=== PATIENT | female | born 1945 | race Caucasian/White ===

== ENCOUNTER → 2017-06-19 | Outpatient (CLI) | payer MEDICARE ==
[~2017-06-19] MED LIST: AGGRENOX ER 251 CER PO; CELEXA; CELEXA 20MG20 MG/TAB PO; HCTZ; HCTZ 25MG TAB25 MG PO; IMODIUM 2MG CAPS2 MG PO; LEVOTHYROXINE PO; LEVOXYL0.075 MG PO; LOPRESSOR; LOPRESSOR 550 MG/TAB PO; LOTENSIN40 MG PO; LOTREL 10 MG-201 CAP PO; NORVASC 10MG10 MG PO; PLAVIX 75MG TAB75 MG PO; PRILOSEC; PRILOTC PO; PROTONIX 40MG T40 MG; ZOCOR; ZOCOR 10MG10 MG PO
== END ==
LOC: COL.VAS 06-16 08:00
DX: I10 Essential (primary) hypertension (principal); R01.1 Cardiac murmur, unspecified

== ENCOUNTER → 2017-06-24 | Outpatient (CLI) | payer MEDICARE | LOC: MC.RAD 14:40 | DX: Z12.31 Encounter for screening mammogram for malignant neoplasm of breast (principal); I10 Essential (primary) hypertension; R01.1 Cardiac murmur, unspecified ==

== ENCOUNTER → 2018-08-02 | Outpatient (CLI) | payer MEDICARE | LOC: MC.RAD 09:45 | DX: Z12.31 Encounter for screening mammogram for malignant neoplasm of breast (principal) ==

== ENCOUNTER → 2020-02-27 | Outpatient (CLI) | payer MEDICARE, OTHER | LOC: MC.RAD 14:38 | DX: Z12.31 Encounter for screening mammogram for malignant neoplasm of breast (principal); N63.20 Unspecified lump in the left breast, unspecified quadrant ==

== ENCOUNTER → 2020-03-02 | Outpatient (CLI) | payer MEDICARE, OTHER | LOC: MC.RAD 11:14 | DX: N60.02 Solitary cyst of left breast (principal) ==

== ENCOUNTER 2020-05-12 18:29 | Observation (INO) | payer MEDICARE, OTHER ==
[~2020-05-12] VITALS: Ht 149.9 cm; Wt 94.5 kg
[~2020-05-12 18:29] MED LIST changes: -PROTONIX 40MG T40 MG; +PROTONIX 40MG T40 MG PO
[2020-05-12 19:16] LABS: BASO % 0.4 % (0.0-2.0); EOS # 0.2 (0.0-0.7); EOS % 2.9 % (0-4.0); GRAN # 4.9 (1.4-6.5); GRAN % 66.5 % (42.2-75.2); HEMATOCRIT 39.7 % (37.0-47.0); HEMOGLOBIN 13.2 g/dl (12.5-16.0); LYMPH # 1.6 (1.2-3.4); LYMPH % 21.2 % (20.0-51.0); MEAN CELL VOLUME 87 fl (80.0-100.0); MEAN CORPUSCULAR HEMOGLOBIN 29 pg (27.0-31.0); MEAN CORPUSCULAR HGB CONC 33 g/dl (33.0-37.0); MEAN PLATELET VOLUME 9.7 fl (7.4-10.4); MONO # 0.6 (0.1-0.6); MONO % 8.6 % (1.7-9.3); PLATELET COUNT 227 K/mm3 (130-400); RED BLOOD COUNT 4.55 M/mm3 (4.10-5.30)
[2020-05-12 19:21] LABS: ALANINE AMINOTRANSFERASE 25 U/L (4-34); ALBUMIN 4.5 gm/dL (3.5-5.0); ALKALINE PHOSPHATASE 64 U/L (50-136); ANION GAP 10 mmol/L (7-16); AST,SGOT 29 U/L (15-37); BILIRUBIN,TOTAL 0.4 mg/dL (0.0-1.0); BLOOD UREA NITROGEN 26 mg/dL (7-17); CALCIUM 9.2 mg/dL (8.4-10.2); CARBON DIOXIDE 26 mmol/L (22-30); CHLORIDE 98 mmol/L (98-107); CREATINE KINASE 64 U/L (30-135); CREATININE, serum 1.09 (0.52-1.25); GLUCOSE 129 mg/dL (74-106); LIPASE 87 U/L (23-300); POTASSIUM 4.3 mmol/L (3.4-5.0); SODIUM 133 mmol/L (137-145); TOTAL PROTEIN 7.3 gm/dL (6.4-8.2)
[2020-05-12 19:22] LABS: PROTHROMBIN TIME 10.8 SECONDS (9.7-12.8)
[2020-05-12] MEDS ORDERED: ALDACTONE 25MG25 M1 PO (19:26)
[2020-05-12] MEDS ORDERED: ZOLOFT 100MG100 MG PO (19:26)
[2020-05-12 19:34] LABS: TROPONIN-I < 0.012 ng/mL (0.000-0.035)
--- NOTE | 2020-05-12 22:50 | NUR ---
PT BROUGHT TO FLOOR PER W/C. ALERT AND ORIENTATED. STEADY GAIT. DENIES PAIN, SOA. VS MONITORED. ASSESSMENT COMPLETE. INT INTACT IN LEFT AC. CALL LIGHT WITHIN REACH.
[2020-05-12 23:05] VITALS: BP 159/67; PULSE 68; TEMP 98.4
[2020-05-12] MEDS ORDERED: ZOCOR 20MG20 MG PO (23:43)
[2020-05-12] MEDS ORDERED: LOPRESSOR 225 MG/TAB PO (23:44)
[2020-05-12] MEDS ORDERED: SYNTHROID0.1 MG/TAB PO (23:45)
[2020-05-12] MEDS ORDERED: NATURAL IRON65 MG PO (23:46)
[2020-05-12] MEDS ORDERED: CALCIUM 600 PLU1 TAB PO (23:46)
[2020-05-12] MEDS ORDERED: VITAMIN B COMPL1 SGL PO (23:46)
[2020-05-12] MEDS ORDERED: TURMERIC500 MG PO (23:47)
[2020-05-12] MEDS ORDERED: PROBIOTIC ACID1 EAC3 PO (23:47)
[2020-05-13] MEDS ORDERED: BENADRYL25 M2 PO (01:04)
[2020-05-13] MEDS ORDERED: MELATONIN5 M1 PO (01:05)
[2020-05-13 05:11] VITALS: BP 148/60; PULSE 54; TEMP 97.5
[2020-05-13 08:00] VITALS: BP 134/68; PULSE 59; TEMP 97.5
--- NOTE | 2020-05-13 08:05 | NUR ---
Lying in bed in supine position with eyes open. Alert and oriented x4. Denies pain. Moves all extremities without weakness or deficits. When patient ambulated to bathroom earlier gait was steady. 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 Pupils equal, round, and reactive to light. Patient denies any numbness at this time but does explain that it comes and goes and is only in the lower portion of her face. Patient hopes to go home. Explain that they have placed a consult for the neurologist to see her. Patient denies any additional needs at this time.
--- NOTE | 2020-05-13 08:54 | NUR ---
Dr. Kate notified of consult.
--- NOTE | 2020-05-13 10:33 | NUR ---
SW met with patient to complete intake. Patient states that she lives in [place] alone, does not utiize any DME and is independent with her ADL's. Patient provides that her PCP is Dr. Lim, pharmacy is [facility], and that she is able to afford her medications. Patient provides that her DPOA-HC is lopez Cadena [phone] and that she has the documenation at her home. Patient states that she does not have any questions or concerns at this time about going home upon DC and does not feel that she will need any services. SW will continue to follow.
[2020-05-13 11:30] VITALS: BP 135/59; PULSE 55; TEMP 97.7
--- NOTE | 2020-05-13 12:08 | NUR ---
Patient disconnected from IV fluids per Dr. Boswell verbal orders. Patient sitting on edge of bed. MRI will come to get patient for test, patient is aware of this. Denies pain, numbness/tingling at this time.
--- NOTE | 2020-05-13 12:42 | NUR ---
Patient to MRI via wheel chair at this time.
--- NOTE | 2020-05-13 13:18 | NUR ---
Patient returns to room from MRI via wheelchair.
[2020-05-13 15:46] VITALS: BP 126/56; PULSE 52; TEMP 98.1
--- NOTE | 2020-05-13 16:35 | NUR ---
Patient up in room. Denies pain. Returns to bed at this time. Daughter at bedside. Patient denies needs or concerns at this time.
[2020-05-13 19:32] VITALS: BP 119/55; PULSE 59; TEMP 98.7
[2020-05-14] VITALS: BP 114/46; PULSE 58; TEMP 98.4
[2020-05-14 04:00] VITALS: BP 126/51; PULSE 56; TEMP 97.9
[2020-05-14 07:02] LABS: C-REACTIVE PROTEIN 0.8 mg/dL (0.0-0.9); CHOLESTEROL RISK RATIO 5.1
[2020-05-14 08:02] VITALS: BP 150/82; PULSE 66; TEMP 97.8
[2020-05-14] MEDS ORDERED: LIPITOR 40MG TA40 MG PO (10:39)
[2020-05-14 12:07] VITALS: BP 165/72; PULSE 58; TEMP 97.9
--- NOTE | 2020-05-14 12:45 | NUR ---
Patient has done well throughout the day, has been up independently in room with steady gait. States she feels much better today. Discharge education provided to patient. Educated on when to call provider and follow up appointments. Patient educated on all new medications. All questions answered. Denies pain or further needs at this time. INT discontinued, catheter tip intact. Patient ambulated out with surgical staff.
[2020-05-14 21:32] LABS: FOLATE (FOLIC ACID) 17.9 ng/mL (7.0-31.4)
[2020-05-17 07:38] LABS: VITAMIN B1 208 nmol/L (70-180)
== END 2020-05-14 12:45 | disposition home or self-care (01) ==
LOC: COL.ER 18:29 → SURG 20:10 → EDBEDREQTM 21:05 → EDBEDREQ 21:05 → SURG 05-14 12:45
PROVIDERS: Emergency Medicine; Nurse Practitioner Family; Psychiatry & Neurology Neurology; ADMIT Student in an Organized Health Care Education/Training Program
DX: R20.0 Anesthesia of skin (principal); I10 Essential (primary) hypertension; R73.03 Prediabetes; E78.5 Hyperlipidemia, unspecified; E03.9 Hypothyroidism, unspecified; K21.9 Gastro-esophageal reflux disease without esophagitis; F32.9 Major depressive disorder, single episode, unspecified
CPT/HCPCS: G0378; J7030; Q9967

== ENCOUNTER → 2021-02-21 | Outpatient (CLI) | payer MEDICARE ==
[~2021-02-21] MED LIST changes: +ALDACTONE 25MG25 M1 PO; +BENADRYL25 M2 PO; +CALCIUM 600 PLU1 TAB PO; +LIPITOR 40MG TA40 MG PO; +LOPRESSOR 225 MG/TAB PO; +MELATONIN5 M1 PO; +NATURAL IRON65 MG PO; +PROBIOTIC ACID1 EAC3 PO; +SYNTHROID0.1 MG/TAB PO; +TURMERIC500 MG PO; +VITAMIN B COMPL1 SGL PO; +ZOCOR 20MG20 MG PO; +ZOLOFT 100MG100 MG PO
== END ==
LOC: COL.CARD 02-13 08:30
DX: R55 Syncope and collapse (principal)

== ENCOUNTER → 2023-09-18 | Outpatient (CLI) | payer MEDICARE ==
[~2023-09-18] MED LIST changes: +AMOXAPINE25 MG PO; +COLESTID 1GM1 G PO; +IRON TABLETS325 MG PO
== END ==
LOC: MC.RAD 10:42
DX: Z12.31 Encounter for screening mammogram for malignant neoplasm of breast (principal)

== ENCOUNTER → 2024-03-01 | Outpatient (CLI) | payer MEDICARE ==
[~2024-03-01] VITALS: Ht 147.3 cm; Wt 86.5 kg
[~2024-03-01] MED LIST changes: +LEVOXYL0.1 MG PO; +NORVASC2.5 MG PO; +TOPROL XL 25MG25 MG PO; +Triamcinolone 40 MG/ML 1 ML VIAL IJ SCH
[2024-03-01 13:35] VITALS: BP 168/94; PULSE 54; TEMP 97.8
[2024-03-01 14:20] VITALS: BP 157/92; PULSE 54
== END ==
LOC: COL.RAD 13:10
DX: M51.36 Other intervertebral disc degeneration, lumbar region (principal)
CPT/HCPCS: J0665; J3301